=== PATIENT | male | born 1980 | race Caucasian/White ===

== ENCOUNTER 2018-01-31 11:19 | Emergency (ER) | payer SELFPAY ==
[2018-01-31 11:30] VITALS: BP 141/72
--- NOTE | 2018-01-31 12:11 | Emergency Department Report ---
ED Animal Bite HPI - General Chief Complaint: Animal Bite Stated Complaint: LFT HAND DOG BITE Time Seen by Provider: 01/31/18 12:10 Source: patient Mode of arrival: Ambulatory Limitations: No Limitations - History of Present Illness Initial Comments: Patient reports that he was bitten by his own dog yesterday and has 2 bite corea on his left forearm. Reports pain in that 10. No restriction and moving fingers or wrists. He reports that he thinks is infected. Tetanus vaccine is not up-to-date. Pain is achy and sharp. Pain is worse with movement and touch estimated factors. Patient reported that it was his own dog and out was up-to- date on vaccination to include rabies which she got 2 months ago. MD Complaint: animal bite -: Last night Right: Forearm (dog bite , redness and swelling) Animal: dog Animal Control Notified: No Description: household pet Mechanism: bite, contact with mucous membr Pain Description: sharp, constant, other (a can) Severity scale (0 -10): 8 Context: playing with animal Associated Symptoms: erythema, other (bruising and laceration). denies: discharge from wound, bleeding, fever, chills, rash, loss of consciousness, cough, headache, diaphoresis, shortness of breath Treatments Prior to Arrival: wound dressing(s), pressure - Related Data Patient Tetanus UTD: No Previous Rx's Medication Instructions Recorded Last Taken Type Amoxicillin/K Clav Tab [Augmentin 1 tab PO Q12HR #20 tab 01/31/18 Unknown Rx 875MG TAB] Ibuprofen [Motrin] 600 mg PO Q8H PRN #12 tablet 01/31/18 Unknown Rx Allergies Allergy/AdvReac Type Severity Reaction Status Date / Time No Known Allergies Allergy Unverified 01/31/18 12:20 ED Review of Systems ROS: Stated complaint: LFT HAND DOG BITE Other details as noted in HPI Constitutional: denies: chills, fever Eyes: denies: eye pain, vision change Respiratory: denies: cough, shortness of breath, SOB with exertion, SOB at rest , stridor, wheezing Cardiovascular: denies: chest pain, palpitations, edema, syncope Gastrointestinal: denies: abdominal pain, nausea, diarrhea Genitourinary: denies: urgency, dysuria Musculoskeletal: joint swelling, arthralgia. denies: back pain, myalgia Skin: rash, other (dog bite to left forearm). denies: lesions Neurological: denies: headache, weakness, paresthesias ED Past Medical Hx - Past Medical History Previous Medical History?: No Hx Asthma: No - Surgical History Past Surgical History?: No - Family History Family history: hypertension - Social History Smoking Status: Never Smoker Substance Use Type: Alcohol - Medications Home Medications: Home Medications Medication Instructions Recorded Confirmed Last Taken Type Amoxicillin/K Clav Tab [Augmentin 1 tab PO Q12HR #20 tab 01/31/18 Unknown Rx 875MG TAB] Ibuprofen [Motrin] 600 mg PO Q8H PRN #12 tablet 01/31/18 Unknown Rx ED Physical Exam - General Limitations: No Limitations General appearance: alert, in no apparent distress - Head Head exam: Present: atraumatic, normocephalic, normal inspection - Eye Eye exam: Present: normal appearance, PERRL, EOMI Pupils: Present: normal accommodation - ENT ENT exam: Present: normal exam, normal orophraynx, mucous membranes moist, TM's normal bilaterally, normal external ear exam - Neck Neck exam: Present: normal inspection, full ROM, other (no C-spine tenderness). Absent: tenderness, lymphadenopathy - Respiratory Respiratory exam: Present: normal lung sounds bilaterally. Absent: respiratory distress, chest wall tenderness - Cardiovascular Cardiovascular Exam: Present: regular rate, normal rhythm, normal heart sounds. Absent: systolic murmur, diastolic murmur - GI/Abdominal GI/Abdominal exam: Present: soft, normal bowel sounds. Absent: tenderness, rigid - Extremities Exam Extremities exam: Present: normal inspection, full ROM, tenderness (left forearm around the bites), normal capillary refill, other (No cce. + 2 pulses in all extremities, no neurovascular compromise except superficial laceration already hemostased 0.5 cm and 1 cm . Ecchymotic area noted around the site. Tender to palpate. No signs of tenosynovitis.). Absent: pedal edema, joint swelling, calf tenderness - Back Exam Back exam: Present: normal inspection, full ROM - Neurological Exam Neurological exam: Present: alert, oriented X3, normal gait, reflexes normal, other (no focal neurological deficit). Absent: motor sensory deficit - Psychiatric Psychiatric exam: Present: normal affect, normal mood - Skin Skin exam: Present: warm, dry, intact, normal color, erythema ( No drainage noted.), ecchymosis (distal left forearm with 2 small laceration to thyroid hemostasis from dog bite. Tender to palpate with some erythema around the edges.). Absent: rash - Expanded Skin Exam Expanded Type of lesion: Present: laceration (2 superficial laceration to thyroid hemostasis 0.5 cm and 1 cm. Left forearm), bite/sting Distribution of rash: LUE (left forearm) Description of rash: Present: size (0.5 cm and 1 cm), tenderness, erythematous, swelling. Absent: discharge, fluctuant, indurated ED Course Vital Signs 01/31/18 11:26 Temperature 98.5 F Pulse Rate 77 Blood Pressure 141/72 O2 Sat by Pulse 98 Oximetry - Reevaluation(s) Reevaluation #1: 01/31/18 13:19 Wound irrigated with normal saline followed by iodine and normal saline and Neosporin topical ointment placed to site. There are no nonadhesive Abdiaziz place over the wound. Patient given Motrin 8 mg by mouth emergency room for left forearm pain which relieved this pain. He was given Boostrix 0.5 mL to update tetanus. Critical care attestation.: If time is entered above; I have spent that time in minutes in the direct care of this critically ill patient, excluding procedure time. ED Disposition Clinical Impression: Arthralgia of left forearm, Laceration of skin with delay in treatment, Cellulitis of left forearm Dog bite of forearm without complication Qualifiers: Encounter type: initial encounter Laterality: left Qualified Code(s): S51.852A - Open bite of left forearm, initial encounter; W54.0XXA - Bitten by dog, initial encounter Disposition: TO HOME OR SELFCARE Is pt being admited?: No Does the pt Need Aspirin: No Condition: Stable Instructions: Animal Bite (ED), Arthralgia (ED), Cellulitis (ED) Additional Instructions: Please see discharge instruction in acute wound care Keep affected area clean and dry Follow-up with primary care physician in 2-3 days Motrin for pain and please take medication with food to prevent nausea or irritation to stomach lining Take Bactrim DS for infection Return to the emergency room if, he developed fever, chills, increased pain and drainage from site, nausea and vomited, increase in redness and/or weakness. Referrals: PRIMARY CARE, [Primary Care Provider] - 2-3 Days [facility] [Outside] - 2-3 Days Forms: Work/School Release Form(ED) ED Medical Decision Making - Medical Decision Making This is a 29-year-old male here complaining and deltoid that occurred yesterday with his abdomen dog that lives in his house. He reports does up-to-date on rabies and other vaccination. Patient is here to be evaluated because he said area appears to begin infected. She was seen and examined by myself and found to have mild ecchymotic, tender to palpate, erythema area around to laceration a dog bite site distal left forearm. All lacerations are reviewed hemostasis and healing. No fluctuance or induration. Patient has no restriction in movement of fingers of hands or to elbows or bilateral wrists. Tenderness is localized over laceration site which he has 0.5 cm and 1 cm. All other physical findings are normal. I discussed the patient's diagnosis, treatment plan and need to follow-up with primary care doctor and if he does not have when he needs to follow-up with outside Medical Center in 2 days follow-up cellulitis status post dog bite. Wound care done with normal saline, iodine and Neosporin ointment followed by sterile gauze dressing. Patient given Motrin 800 mg by mouth which relieved this pain to his left forearm and blue streaks 0.5 mL to update tetanus. Patient discharged home in stable condition with prescription for Augmentin and Motrin and he knows he is to follow-up in 2-3 days.
[2018-01-31] MEDS ORDERED: BOOSTRIX IM ONE (12:20)
[2018-01-31] MEDS ORDERED: TRIPLE ANTIBIOTIC TP ONE (12:20)
[2018-01-31] MEDS ORDERED: MOTRIN PO ONE (12:21)
[2018-01-31] MEDS ORDERED: NACL 0.9% IR ONE (12:21)
== END 2018-01-31 13:44 | disposition home or self-care (01) ==
LOC: ED 11:19
DX: S51.852A Open bite of left forearm, initial encounter (principal); L03.114 Cellulitis of left upper limb; W54.0XXA Bitten by dog, initial encounter; Y93.89 Activity, other specified; Y92.89 Other specified places as the place of occurrence of the external cause; Y99.8 Other external cause status
CPT/HCPCS: 90471; 90715; 99283; A6250

== ENCOUNTER 2021-07-25 21:42 | Emergency (ER) | payer SELFPAY ==
[2021-07-26 05:16] VITALS: BP 152/84
[2021-07-26] MEDS ORDERED: dexAMETHasone 20 MG/5 ML VIAL IM ONE (05:45)
[2021-07-26] MEDS ORDERED: AMOXICILLIN/K CLAV 875/125MG TAB PO ONE (05:45)
[2021-07-26] MEDS ORDERED: IBUPROFEN 800 MG TAB PO ONE (05:45)
--- NOTE | 2021-07-26 06:24 | Emergency Department Report ---
ED General Adult HPI - General Chief complaint: Animal Bite Stated complaint: SPIDER BITE Time Seen by Provider: 07/26/21 05:43 Source: patient Mode of arrival: Ambulatory Limitations: No Limitations - History of Present Illness Initial comments: Patient 41-year-old male who presents for allergic reaction after cleaning bushes around his house 1 yesterday. States sore throat itching and burning with sinus pain and pressure. Patient does endorse seasonal allergies. There is no shortness of breath no wheezing or stridor. There is no dizziness ligh theadedness or nausea or vomiting. Is been no fever or chills. Patient does endorse clear rhinorrhea however. Symptoms rated at 4/10 at this time symptoms are relieved by rest, symptoms are exacerbated by movement and position. Severity scale (0 -10): 6 - Related Data Previous Rx's Medication Instructions Recorded Last Taken Type Amoxicillin/K Clav Tab [Augmentin 1 tab PO Q12HR #20 tab 01/31/18 Unknown Rx 875MG TAB] Ibuprofen [Motrin] 600 mg PO Q8H PRN #12 tablet 01/31/18 Unknown Rx Ibuprofen [Motrin 800 MG tab] 800 mg PO Q8HR PRN #30 tablet 07/26/21 Unknown Rx dexAMETHasone [Decadron] 4 mg PO BID 6 Days #3 tablet 07/26/21 Unknown Rx diphenhydrAMINE [Benadryl CAP] 25 mg PO Q8HR PRN #30 capsule 07/26/21 Unknown Rx Allergies Allergy/AdvReac Type Severity Reaction Status Date / Time No Known Allergies Allergy Unverified 01/31/18 12:20 ED Review of Systems ROS: Stated complaint: SPIDER BITE Other details as noted in HPI Constitutional: malaise Eyes: denies: eye pain, eye discharge, vision change ENT: throat pain, congestion, other. denies: ear pain, epistaxis Respiratory: denies: cough, shortness of breath, wheezing Cardiovascular: denies: chest pain, palpitations Endocrine: no symptoms reported Gastrointestinal: denies: abdominal pain, nausea, diarrhea Genitourinary: denies: urgency, dysuria Musculoskeletal: denies: back pain, joint swelling, arthralgia Skin: denies: rash, lesions Neurological: denies: headache, weakness, numbness, paresthesias, confusion, vertigo Psychiatric: denies: anxiety, depression Hematological/Lymphatic: denies: easy bleeding, easy bruising ED Past Medical Hx - Past Medical History Previous Medical History?: No Hx Asthma: No - Social History Smoking Status: Never Smoker Substance Use Type: Alcohol - Medications Home Medications: Home Medications Medication Instructions Recorded Confirmed Last Taken Type Amoxicillin/K Clav Tab [Augmentin 1 tab PO Q12HR #20 tab 01/31/18 Unknown Rx 875MG TAB] Ibuprofen [Motrin] 600 mg PO Q8H PRN #12 tablet 01/31/18 Unknown Rx Ibuprofen [Motrin 800 MG tab] 800 mg PO Q8HR PRN #30 tablet 07/26/21 Unknown Rx dexAMETHasone [Decadron] 4 mg PO BID 6 Days #3 tablet 07/26/21 Unknown Rx diphenhydrAMINE [Benadryl CAP] 25 mg PO Q8HR PRN #30 capsule 07/26/21 Unknown Rx ED Physical Exam - General Limitations: No Limitations General appearance: alert, in no apparent distress - Head Head exam: Present: normocephalic, normal inspection - Eye Eye exam: Present: normal appearance, PERRL, EOMI Pupils: Present: normal accommodation - ENT ENT exam: Present: normal orophraynx (Pharynx erythema no lesions no exudate uvula midline there is no stridor or wheezing), mucous membranes moist, TM's normal bilaterally, normal external ear exam - Neck Neck exam: Present: normal inspection, full ROM. Absent: tenderness, meningismus, lymphadenopathy, thyromegaly - Respiratory Respiratory exam: Present: normal lung sounds bilaterally. Absent: respiratory distress, wheezes, stridor, chest wall tenderness - Cardiovascular Cardiovascular Exam: Present: regular rate, normal rhythm, normal heart sounds. Absent: systolic murmur, diastolic murmur, rubs, gallop - GI/Abdominal GI/Abdominal exam: Present: soft, normal bowel sounds. Absent: distended, tenderness - Rectal Rectal exam: Present: deferred - Extremities Exam Extremities exam: Present: normal inspection, full ROM, normal capillary refill - Back Exam Back exam: Present: normal inspection, full ROM. Absent: CVA tenderness (R), CVA tenderness (L) - Neurological Exam Neurological exam: Present: alert, oriented X3, CN II-XII intact - Expanded Neurological Exam Expanded Patient oriented to: Present: person, place, time Cranial nerves: Gag Reflex: Normal, Tongue Deviation: Normal Best Eye Response (Francois): (4) open spontaneously Best Motor Response (Francois): (6) obeys commands Best Verbal Response ([place]): (5) oriented Francois Total: 15 - Psychiatric Psychiatric exam: Present: normal affect, normal mood - Skin Skin exam: Present: warm, dry, intact, normal color. Absent: rash ED Course Vital Signs 07/26/21 07/26/21 05:15 05:58 Temperature 98.3 F Pulse Rate 84 Respiratory 20 14 Rate Blood Pressure 152/84 [Right] O2 Sat by Pulse 97 Oximetry ED Medical Decision Making - Medical Decision Making Exam consistent with sinusitis plan treat for same steroids NSAIDs antihistamines. .Patient advises symptoms are improved at this time will be DC'd home in stable condition at this time Critical care attestation.: If time is entered above; I have spent that time in minutes in the direct care of this critically ill patient, excluding procedure time. ED Disposition Clinical Impression: Sinusitis Qualifiers: Sinusitis location: frontal Chronicity: acute Recurrence: non-recurrent Qualified Code(s): J01.10 - Acute frontal sinusitis, unspecified Allergies Qualifiers: Encounter type: initial encounter Qualified Code(s): T78.40XA - Allergy, un specified, initial encounter Disposition: 01 HOME / SELF CARE / HOMELESS Is pt being admited?: No Does the pt Need Aspirin: No Condition: Stable Instructions: Sinusitis, Adult, [id number], Allergies, Adult, [id number] Additional Instructions: Take medications as prescribed, follow-up with your doctor in 2 to 3 days. Return to emergency department should symptoms worsen. Prescriptions: diphenhydrAMINE [Benadryl CAP] 25 mg PO Q8HR PRN #30 capsule PRN Reason: allergies dexAMETHasone [Decadron] 4 mg PO BID 6 Days #3 tablet Ibuprofen [Motrin 800 MG tab] 800 mg PO Q8HR PRN #30 tablet PRN Reason: pain Referrals: [facility] [Provider Group] - 3-5 Days Forms: Work/School Release Form(ED) Time of Disposition: 06:27
== END 2021-07-26 07:57 | disposition home or self-care (01) ==
LOC: ED 21:42
DX: J01.10 Acute frontal sinusitis, unspecified (principal); T78.40XA Allergy, unspecified, initial encounter; X58.XXXA Exposure to other specified factors, initial encounter
CPT/HCPCS: 96372; 99282; J1100